=== PATIENT | female | born 1970 | race Caucasian/White ===

== ENCOUNTER 2020-08-04 10:33 | Emergency (ER) | payer OTHER ==
--- OUTSIDE RECORDS SUMMARY | 2020-08-04 10:35 | XMS REPORT | Continuity of Care Document ---
:1970 Author Organization [employer] Care Team Providers Name Role Phone SpineThera Unavailable Un available Problems Problem Status Onset Classification Date Comments Sourc e Date Reported DONOR VISIT Active 12/02/[address] Anxiety (finding) Resolved Problem 12/08/2017 [facility] [place] Herpes labialis Resolved Problem 12/08/2017 [facility] (disorder) [place] Herpes simplex of Resolved Problem 12/08/2017 M [facility] OP[facility] female genitalia Her perkins (disorder) Arthritis Resolved Problem 12/08/2017 [facility] (disorder) [place] Prolapsed Resolved Problem 12/08/2017 [facility] cervical [place] intervertebral disc without myelopathy (disorder) Medications No Data Provided for This Section Allergies, Adverse Reactions, Alerts No Known Medication Allergies Immunizations No Data Provided for This Section Results No Data Provided for This Section Pathology Reports No Data Provided for This Section Diagnostic Reports Report Value Date Source Spine lumbar wo EXAM: Spine lumbar wo contrast MRI 12/02/2017 OP[facility] [place] contrast MRI DATE: 12/02/2017 7:38 AM CDT INDICATION: - M54.16 Radiculopathy, lumbar re gion COMPARISON: None TECHNIQUE: Multiplanar multi sequence images of the lumbar spine were obtained without contrast administration DISCUSSION: The height and the structure of the lumbar vertebral bodies are well- maintained. Discogenic changes in the opposing endplates at T11, T12, L1, L3, L4 and L5. Decreased T2 signal in the intervertebral discs due to degenerative changes. T12-L1: No canal or foraminal stenosis. L1-L2: No canal or foraminal stenosis. L2-3: No canal or foraminal stenosis. Left facet arthropathy. Encroachment of the neural foramen by posterior endplate spondylosis and annular bulge with no discrete nerve root impingement. L3-L4: Narrowing of the left neural foramen by facet arthropathy and annular bulge displacing the exiting left L3 nerve root sleeve. No canal stenosis. L4-L5: No canal stenosis. Bi lateral facet arthropathy. Encroachment of the neural foramen by endplate spondylosis and annular bulge with no discrete nerve root impingement. L5-S1: No canal or foraminal stenosis. Caliber of the common bile duct is upper limits of normal. IMPRESSION: Narrowing of the left L3-L4 neural foramen by degenerative changes displacing the exiting left L3 nerve root sleeve. No canal stenosis. Consultation Notes No Data Provided for This Section Discharge Summaries No Data Provided for This Section History and Physicals No Data Provided for This Section Vital Signs No Data Provided for This Section Encounters Location Location Encounter Encounter Reason Attending ADM CT Stat us Source Details Type Number For Provider Date Date Visit [facility] Outpt Diag [id number] [place] 12/02 12/03 [facility] Prasarn /2017 [facility] [place] Procedures Procedure Code Date Perfomer Comments Source Breast augmentation [id number] OP ID [facility] Meniscal repair [id number] [facility] Umbilical [id number] OPID herniorrhaphy [place] Assessment and Plan No Data Provided for This Section Plan of Care No Data Provided for This Section Social History Social History Date Source Social History TypeResponse 12/02/2016 OPID Herm hoang Smoking Status Former smoker; Type: Cigarettes; Previou s treatment: None; Exposure to Tobacco Smoke None; Cigarette Smoking Last 365 Days No; Reg Smoking Cessation Counseling No; Tobacco use per day: 1; Number of years: 15; entered on: 12/02/16 Family History No Data Provided for This Section Advance Directives No Data Provided for This Section Functional Status No Data Provided for This Section
--- OUTSIDE RECORDS SUMMARY | 2020-08-04 10:35 | XMS REPORT | Clinical Summary ---
:1970 Author Organization [employer] Address [address] [place] [address] Care Team Providers Name Role Phone Russell Pearce MD Primary Care Provider Allergies No Known Active Allergies Medications Medication Sig Dispensed Refills Start Date End Date Status zolpidem (AMBIEN) 10 mg Take 10 mg by 0 Active tablet mouth nightly as needed for sleep. 1/2 tab hs prn gabapentin (NEURONTIN) Take 1 tablet 180 tablet 0 02/12/2018 Active 600 mg (600 mg total) tabletIndications: by mouth 2 (two) Chronic lumbar times a day. radiculopathy Active Problems Problem Noted Date Chronic lumbar radiculopathy 05/30/2017 Surgical History Surgery Date Site/Laterality Comments MENISCECTOMY 08/07/2010 - 08/06/2011 AUGMENTATION, BREAST, WITH PROSTHETIC 08/07/2000 - 08/06/2001 IMPLANT BREAST IMPLANT REMOVAL 08/07/2008 - 08/06/2009 AUGMENTATION, BREAST, WITH PROSTHETIC 08/07/2009 - 08/06/2010 IMPLANT HERNIA REPAIR CYST REMOVAL 08/07/2014 - 08/06/2015 TUBAL LIGATION Medical History Medical History Date Comments Anxiety Social History Tobacco Use Types Packs/Day Years Used Date Former Smoker Cigarettes Quit: 2013 Smokeless Tobacco: Current User Alcohol Use Drinks/Week oz/Week Comments Yes rare Sex Assigned at Date Recorded Not on file Last Filed Vital Signs Not on file Plan of Treatment Health Maintenance Due Date Last Done Comments COVID-19 VACCINE (#1) 1987 CERVICAL CANCER SCREENING 1992 INFLUENZA VACCINE 03/07/2020 Results Not on fileafter 08/04/2019 Advance Directives For more information, please contact: [phone] Type Date Recorded Patient Real Estate Listing Consultant Explanati on Advance Directives, Living Will and Medical Power of [place] Hand
--- OUTSIDE RECORDS SUMMARY | 2020-08-04 10:36 | XMS REPORT | Continuity of Care Document ---
:1970 Author Organization [facility] t Address [address] [place] [address] Care Team Providers Name Role Phone Danielle Pearce MD Primary Care Physician Yudith ALVARENGA Attending Clinician Lab, Fam Pob I Attending Clinician Unavailable Chandni Attending Clinician Unavailable [facility] Attending Clinician Unavailable Red Mireles Attending Clinician RAFIA Attending Clinician Unavailable Payers Payer Name Policy Type Policy Number Effective Date Expiration Date S ource Problems Condition Condition Condition Status Onset Resolution Last Treating Co mments Source Name Details Category Date Date Treatment Clinician Date Chronic Chronic Disease Active 2016-08 [place] lumbar lumbar 0-24 Methodi radiculopa radiculopa 00:00: st thy thy 00 DONOR Diagnosis Active 2016-12-23 Mem oria VISIT 12-01 15:53:00 l DONOR 00:00: [place] VISIT 00 Active 12/01/2016 [facility] Acute Acute Problem Active [facility] bilateral bilateral [id number] [place] [facility] Anxiety Problem Resolve 2017-12-08 Mem oria (finding) d 19:01:59 l Anxiety [place] (finding) Resolved Problem 12/08/2017 [facility] [place] Herpes Problem Resolve 2017-12-08 Tito bailey labialis d 19:01:59 l (disorder) Herpes [place] hoang labialis (disorder) Resolved Problem 12/08/2017 OPID [place] Herpes Problem Resolve 2017-12-08 Tito bailey simplex of d 19:01:59 l female Herpes [place] genitalia simplex of (disorder) female genitalia (disorder) Resolved Problem 12/08/2017 [facility] [place] Arthritis Problem Resolve 2017-12-08 M emoria (disorder) d 19:01:59 l [place] Arthritis (disorder) Resolved Problem 12/08/2017 MH OPID [place] Prolapsed Problem Resolve 2017-12-08 M emoria cervical d 19:01:59 l interverte Blas n bral disc Prolapsed without cervical myelopathy interverte (disorder) bral disc without myelopathy (disorder) Resolved Problem 12/08/2017 MH OPID [place] Allergies, Adverse Reactions, Alerts Allergy Allergy Status Severity Reaction(s) Onset Inactive Treating Comm ents Source Name Type Date Date Clinician No Known DA Active [facility] 3-20 [facility] Family History Family Member Diagnosis Comments Start Date Stop Date Source Mother Family history of [facility] [place] [facility] Father Family history of [facility] [place] [facility] Father Family history of [facility] [place] seizures [facility] Social History Social Habit Start Date Stop Date Quantity Comments Source History of Current smoker [place] [facility] thodi tobacco use Sex Assigned At [facility] ethodi Tobacco use and 2017-06-19 2017-06-19 Current user [place] Yarsani exposure 00:00:00 00:00:00 Alcohol intake 2017-06-19 2017-06-19 Current drinker [place] Yarsani 00:00:00 00:00:00 of alcohol (finding) Alcohol Comment 2017-05-30 2017-05-30 rare [facility] ethodist 00:00:00 00:00:00 Smoking Status Start Date Stop Date Source Former smoker 2017-06-19 00:00:00 2017-06-19 00:00:00 [facility] Medications Ordered Filled Start Stop Current Ordering Indication Dosage Frequency Signature Comments Components Source Medication Medication Date Date Medication? Clinician (SIG) Name Name gabapentin 2018- Yes Chronic 600mg Q.5D Take 1 [place] (NEURONTIN) 7-09 lumbar tablet Meth ghazala 600 mg 00:00: radiculopat (600 mg s t tablet 00 hy total) by mouth 2 (two) times a day. Gabapentin Gabapentin Yes SWATI Q0.5D TAKE 1 Univers 600 MG Oral 600 MG Oral 5-07 PRASARN TABLET ity of Tablet Tablet 00:00: M.D. TWICE [place] 00 DAILY. Physici ans MethylPREDN MethylPREDN Yes SWATI Take as Univers ISolone 4 ISolone 4 4-23 PRASARN directed ity of MG Oral MG Oral 00:00: [place]. [place] Tablet Tablet 00 pack Physici Therapy Therapy ans Pack Pack zolpidem 2016-08 Yes 10mg QD Take 10 mg Carlos ston (AMBIEN) 10 0-24 by mouth Meth ghazala mg tablet 15:28: nightly as st 01 needed for sleep. 1/2 tab hs prn TiZANidine TiZANidine Yes Uni vers HCl - 2 MG HCl - 2 MG ity of Oral Oral [place] Capsule Capsule Physici ans Gabapentin Gabapentin Yes Uni vers 600 MG Tab 600 MG Tab ity of (OR) - (OR) - [place] [id number] P hysici ivated ivated ans ValACYclovi ValACYclovi Yes U nivers r HCl - 1 r HCl - 1 ity o f GM Oral GM Oral [place] Tablet Tablet Physici ans Potassium Potassium Yes Unive rs 99 MG Oral 99 MG Oral ity of Tablet Tablet [place] Physici ans Milk Milk Yes Univers Thistle Thistle ity of 1000 MG 1000 MG [place] Oral Oral Physici Capsule Capsule ans Folic Acid Folic Acid Yes Uni vers 800 MCG 800 MCG ity of Oral Tablet Oral Tablet [place] Physici ans Biotin 5000 Biotin 5000 Yes U nivers MCG Oral MCG Oral ity of Tablet Tablet [place] Physici ans Probiotic Probiotic Yes Unive rs CAPS CAPS [facility] [place] Physici ans Turmeric Turmeric Yes Univers Curcumin Curcumin ity of CAPS CAPS [place] Physici ans Vital Signs Vital Name Observation Time Observation Value Comments Source Height 2017-11-27 10:55:00 62 [in_us] [facility] Weight 2017-11-27 10:55:00 125 [lb_av] [facility] Body Mass Index 2017-11-27 10:55:00 22.86 kg/m2 [facility] Calculated Physicians Height 2017-10-10 08:39:00 62 [in_us] [facility] Weight 2017-10-10 08:39:00 125 [lb_av] [facility] Body Mass Index 2017-10-10 08:39:00 22.86 kg/m2 [facility] Calculated Physicians Procedures Procedure Date / Time Performing Clinician Source Performed [U] XRAY KNEE 4 OR MORE 2018-06-20 00:00:00 [facility] VWS BILATERAL [id number] Physicians Physical Therapy 2017-11-27 00:00:00 [facility] MRI Spine lumbar wo 2017-11-27 00:00:00 [facility] contrast [id number] Physicians History of Hernia repair [facility] Physicians History of Cyst excision [facility] Physicians History of Knee surgery [facility] History of Breast [facility] surgery Physicians Breast augmentation [facility] Meniscal repair [facility] Umbilical herniorrhaphy [facility] Plan of Care Planned Activity Planned Date Details Comments Source Future Scheduled 2020-03-07 INFLUENZA VACCINE [facility] Yarsani Test 00:00:00 [code = INFLUENZA VACCINE] Future Scheduled 1992 Screening for [place] [facility] thodist Test 00:00:00 malignant neoplasm of cervix (procedure) [code = 412697551] Future Scheduled 1987 COVID-19 VACCINE [place] Yarsani Test 00:00:00 (#1) [code = COVID-19 VACCINE (#1)] Encounters Start End Encounter Admission Attending Care Care Encounter Source Date/Time Date/Time Type Type Clinicians Facility Department ID 2020-04-04 2020-04-04 Telephone ISAIAH [place] [id number] 00:00:00 00:00:00 Vinay [facility] [id number] [facility]PITAL [id number] 2020-04-03 2020-04-03 Laboratory Lab, [facility] [id number] 09:31:05 09:51:05 Only Fam Pob I Health [id number] [place] [id number] Professio [id number] nal [address] 2018-06-21 2018-06-21 AppointSHANNAN [facility] [id number] Univers 14:30:00 14:30:00 t; Real Tariq, at [facility] Donavon Noble M.D. Physici ans 2018-01-17 2018-01-17 AppointSHANNAN [place] UTP [id number] Univers 14:15:00 14:15:00 t; Donavon LONGORIA [place], [place] Donavon LONGORIA Physi ci ans 2017-12-02 2017-12-02 Outpatient Chi, MHOIH MHOIH [id number] 07:28:00 23:59:00 Swati Red 2017-12-02 2017-12-02 [facility] [id number] 07:28:00 23:59:00 Swati Red 2017-11-27 2017-11-27 Appointbigg MIRELES [facility] Orthopedics [id number] Univers 09:30:00 09:30:00 t; Donavon LONGORIA at [place], [place] Donavon LONGORIA Physi ci ans 2017-10-09 2017-10-09 Leonard MIRELES [facility] Orthopedics [id number] Univers 14:30:00 14:30:00 t; Donavon LONGORIA at [place], [place] Donavon LONGORIA Physi ci ans 2016-11-10 2016-11-10 Leonard MORATAYA [facility] UTP [id number] Univers 10:15:00 10:15:00 t; LITO MORATAYA M.D. i ty of [place] MORSE [place] Physici ans Results This patient has no known results.
[2020-08-04] MEDS ORDERED: TETANUS & DIPHTHERIA TOX,ADULT 0.5 ML VIAL ONE (11:15)
[2020-08-04] MEDS ORDERED: HYDROCODONE/APAP 10/325 TAB ONE (11:15)
--- NOTE | 2020-08-04 11:35 | RAD REPORT ---
EXAM DESCRIPTION: RAD - Hand Right 3 View - 08/04/2020 11:24 am CLINICAL HISTORY: dog bite, puncture wound both hands COMPARISON: No comparisons FINDINGS: No fracture is identified. There is no dislocation or periosteal reaction noted. No forei gn body seen in the soft tissues. Soft tissue wound is evident in the thenar soft tissues. IMPRESSION: No acute bone or joint finding of the right hand. No foreign body.
--- NOTE | 2020-08-04 11:36 | RAD REPORT ---
EXAM DESCRIPTION: RAD - Hand Left 3 View - 08/04/2020 11:23 am CLINICAL HISTORY: dog bite COMPARISON: None. FINDINGS: No fracture, dislocation or periosteal reaction noted. No foreign body or other soft tissu e abnormality. IMPRESSION: Negative left hand examination.
[2020-08-04] MEDS ORDERED: AMOX/K CLAV 875 MG TAB ONE (11:43)
--- NOTE | 2020-08-04 12:17 | ER ---
Nurse's Notes [facility] Name: Berenice Anthony Age: 50 yrs Sex: Female : 1970 Arrival Date: 08/04/2020 Time: 10:35 Bed 4 Private MD: Diagnosis: Dog Bite Presentation: 08/04 10:44 Chief complaint: Patient states: small puncture wounds to bilateral hands that occurred ss while breaking up a dog fight just prior to arrival. No active bleeding noted at this time. Dogs are reportedly UTD with vaccinations. Coronavirus screen: Client denies travel out of the [place] in the last 14 days. Ebola Screen: Patient denies exposure to infectious person. Patient denies travel to an Ebola-affected area in the 21 days before illness onset. Initial Sepsis Screen: Does the patient meet any 2 criteria? No. Patient's initial sepsis screen is negative. Does the patient have a suspected source of infection? No. Patient's initial sepsis screen is negative. Risk Assessment: Do you want to hurt yourself or someone else? Patient reports no desire to harm self or others. Onset of symptoms was August 04, 2020. 10:44 Method Of Arrival: Ambulatory ss 10:44 Acuity: SHANE 3 ss Historical: - Allergies: 10:47 No Known Allergies; ss - Home Meds: 10:47 Valtrex PRN [Active]; ss - PSHx: 10:47 Tubal ligation; Hernia repair; breast; ss - Immunization history:: Adult Immunizations up to date, Last tetanus immunization: unknown. - Social history:: Smoking status: Reported history of juuling and/or vaping. Screenin:44 Abuse screen: Denies threats or abuse. Denies injuries from another. Nutritional sv screening: No deficits noted. Tuberculosis screening: No symptoms or risk factors identified. Fall Risk None identified. Assessment: 10:44 General: Appears in no apparent distress. comfortable, Behavior is calm, cooperative. ss Pain: Complains of pain in right hand and left hand Pain currently is 6 out of 10 on a pain scale. Quality of pain is described as tender, Pain began 1 hour ago. Is continuous. Neuro: Level of Consciousness is awake, alert, obeys commands, Oriented to person, place, time, situation, Speech is normal. Cardiovascular: Capillary refill < 3 seconds is brisk in bilateral fingers. Respiratory: Airway is patent Respiratory effort is even, unlabored, Respiratory pattern is regular, symmetrical. GI: Patient currently denies nausea. EENT: No signs and/or symptoms were reported regarding the EENT system. Derm: Skin is intact, is healthy with good turgor, Skin is dry, Skin is pink, warm \T\ dry. normal. Injury Description: small puncture wounds noted to R hand and L hand. No bleeding noted at this time. 10:56 Reassessment: Spoke with [facility] Dispatch who reports that they will send an ss officer over and to call them if patient is discharged before officer arrives. Pt notified. 10:59 Reassessment: Awaiting XRAYs to be obtained. ss 12:00 Reassessment: cleaned wounds with hibiclens and NS. Pt tolerated well. ss Vital Signs: 10:44 BP 108 / 86; Pulse 93; Resp 16; Temp 97.5(TE); Pulse Ox 98% on R/A; Weight 56.7 kg; ss Height 5 ft. 1 in. (154.94 cm); Pain 6/10; 10:44 Body Mass Index 23.62 (56.70 kg, 154.94 cm) ss ED Course: 10:35 Patient arrived in ED. rg4 10:37 Bridger Murphy PA is PHCP. m 10:37 Jey Zelaya MD is Attending Physician. jmm 10:44 Kaelyn Sosa RN is Primary Nurse. ss 10:44 Arm band placed on Patient placed in an exam room, on a stretcher. sv 10:44 Patient has correct armband on for positive identification. Bed in low position. Call sv light in reach. Door closed. Head of bed elevated. 10:46 Triage completed. ss 11:14 X-ray(s) taken. sv 11:23 Hand Right 3 View XRAY In Process Unspecified. EDMS 11:23 Hand Left 3 View XRAY In Process Unspecified. EDMS 12:35 No provider procedures requiring assistance completed. Patient did not have IV access ss during this emergency room visit. Wound care: to puncture located on right hand and left hand was cleaned with Hibiclens, dressed with Neosporin, 4X4s, Kerlix, wet to dry dressings. Administered Medications: 11:07 Drug: Tetanus-Diphtheria Toxoid Adult 0.5 ml {Rn Postpartum: Girly Stuff. Exp: sv 11/21/2021. Lot #: [id number]. } Route: IM; Site: right deltoid; 12:37 Follow up: Response: No adverse reaction ss 11:07 Drug: [place] 10 mg-325 mg 1 tabs {Note: rass1.} Route: PO; sv 12:37 Follow up: Response: No adverse reaction; Pain is decreased ss 11:30 Drug: Augmentin 875 mg Route: PO; ss 12:37 Follow up: Response: No adverse reaction; Medication administered at discharge. ss Outcome: 12:16 Discharge ordered by . gregg 12:35 Discharged to home ambulatory. ss 12:35 Condition: good 12:35 Discharge instructions given to patient, family, Instructed on discharge instructions, follow up and referral plans. medication usage, Demonstrated understanding of instructions, follow-up care, medications, Prescriptions given X 2. 12:36 Patient left the ED. ss Signatures: Dispatcher [employer] Stephanie Hernandez, RN RN Bridger Alegria PA PA jmm Smirch, Shelby, RN RN ss Garcia, Rubi rg4
--- NOTE | 2020-08-04 12:17 | EDPHYS ---
Physician Documentation [facility] Name: Berenice Anthony Age: 50 yrs Sex: Female : 1970 Arrival Date: 08/04/2020 Time: 10:35 Bed 4 Private MD: ED Physician Jey Zelaya HPI: 08/04 10:43 This 50 yrs old Female presents to ER via Ambulatory with complaints of Dog jmm Bite. 10:43 Onset: The symptoms/episode began/occurred acutely, just prior to arrival. Animal jmm information: Animal's vaccinations are up to date. Secondary to the bite the patient reports swelling. Associated signs and symptoms: Pertinent positives: pain at site, Pertinent negatives: fever. This is a 50 year old female that presents to the ED with complaints of pain to her hands after bite from breaking up a fight between dogs. Patient is unsure of tetanus immunization status. . Historical: - Allergies: 10:47 No Known Allergies; ss - Home Meds: 10:47 Valtrex PRN [Active]; ss - PSHx: 10:47 Tubal ligation; Hernia repair; breast; ss - Immunization history:: Adult Immunizations up to date, Last tetanus immunization: unknown. - Social history:: Smoking status: Reported history of juuling and/or vaping. ROS: 10:43 Constitutional: Negative for fever, chills, and weight loss, Cardiovascular: Negative jmm for chest pain, palpitations, and edema, Respiratory: Negative for shortness of breath, cough, wheezing, and pleuritic chest pain. 10:43 Skin: Positive for laceration(s). 10:43 All other systems are negative. Exam: 10:43 Constitutional: This is a well developed, well nourished patient who is awake, alert, jmm and in no acute distress. Head/Face: atraumatic. Eyes: EOMI, no conjunctival erythema appreciated ENT: Moist Mucus Membranes Neck: Trachea midline, Supple Chest/axilla: Normal chest wall appearance and motion. Cardiovascular: Regular rate and rhythm. No edema appreciated Respiratory: Normal respirations, no respiratory distress appreciated Abdomen/GI: Non distended, soft Back: Normal ROM 10:43 Skin: lacerations noted to the palm of the left and right hand, no active bleeding, no surrounding induration or erythema. 10:43 Neuro: Orientation: is normal, Mentation: is normal, Memory: is normal. 10:43 Psych: Behavior/mood is pleasant, cooperative. Vital Signs: 10:44 BP 108 / 86; Pulse 93; Resp 16; Temp 97.5(TE); Pulse Ox 98% on R/A; Weight 56.7 kg; ss Height 5 ft. 1 in. (154.94 cm); Pain 6/10; 10:44 Body Mass Index 23.62 (56.70 kg, 154.94 cm) MDM: 10:43 Patient medically screened. [facility] 12:15 Data reviewed: vital signs, nurses notes. Counseling: I had a detailed discussion with [facility] the patient and/or guardian regarding: the historical points, exam findings, and any diagnostic results supporting the discharge/admit diagnosis, radiology results, the need for outpatient follow up, to return to the emergency department if symptoms worsen or persist or if there are any questions or concerns that arise at home. ED course: Wounds cleaned, abx given. Xray negative. patient given wound infection return precautions. Patient understood and agrees with the plan of care. . 08/04 10:55 Order name: Hand Right 3 View XRAY; Complete Time: 11:47 [facility] 08/04 10:55 Order name: Hand Left 3 View XRAY; Complete Time: 11:47 [facility] 08/04 11:47 Order name: Wound Care; Complete Time: 12:07 [facility] Administered Medications: 11:07 Drug: Tetanus-Diphtheria Toxoid Adult 0.5 ml {[employer] Operator: [employer]. Exp: sv 11/21/2021. Lot #: [id number]. } Route: IM; Site: right deltoid; 12:37 Follow up: Response: No adverse reaction 11:07 Drug: [place] 10 mg-325 mg 1 tabs {Note: rass1.} Route: PO; sv 12:37 Follow up: Response: No adverse reaction; Pain is decreased ss 11:30 Drug: Augmentin 875 mg Route: PO; ss 12:37 Follow up: Response: No adverse reaction; Medication administered at discharge. Disposition: 13:22 Co-signature as Attending Physician, Jey Zelaya MD. rn Disposition: 08/04/20 12:16 Discharged to Home. Impression: Dog Bite. - Condition is Stable. - Discharge Instructions: Animal Bite. - Prescriptions for Augmentin 875- 125 mg Oral Tablet - take 1 tablet by ORAL route every 12 hours for 10 days; 20 tablet. Ultracet 37.5- 325 mg Oral Tablet - take 1 tablet by ORAL route every 6 hours - for up to 5 days; do not exceed 8 tablets per day.; 12 tablet. - Medication Reconciliation Form, Thank You Letter, Antibiotic Education, Prescription Opioid Use form. - Follow up: Private Physician; When: 2 - 3 days; Reason: Recheck today's complaints, Continuance of care, Re-evaluation by your physician. Signatures: Dispatcher [employer] EDStephanie Aguirre RN RN Bridger Alegria PA PA jmm Nieto, Roman, MD MD rn Smirch, Shelby, RN RN ss Corrections: (The following items were deleted from the chart) 12:36 12:16 08/04/2020 12:16 Discharged to Home. Impression: Dog Bite. Condition is Stable. ss Forms are Medication Reconciliation Form, Thank You Letter, Antibiotic Education, Prescription Opioid Use. Follow up: Private Physician; When: 2 - 3 days; Reason: Recheck today's complaints, Continuance of care, Re-evaluation by your physician. gregg
[2020-08-04 12:42] VITALS: BP 108/86; TEMP 97.5; O2SAT 98
== END 2020-08-04 12:36 | disposition home or self-care (01) ==
LOC: ER 10:33
DX: S61.412A Laceration without foreign body of left hand, initial encounter (principal); S61.411A Laceration without foreign body of right hand, initial encounter; W54.0XXA Bitten by dog, initial encounter; Y93.89 Activity, other specified; Y92.9 Unspecified place or not applicable; Z23 Encounter for immunization
CPT/HCPCS: 90471; 90714; 99284